=== PATIENT | female | born 1990 | race Caucasian/White ===

== ENCOUNTER 2017-10-13 10:24 | Emergency (ER) | payer MEDICAID, OTHER ==
--- NOTE | 2017-10-13 10:39 | ED Physician Documentation ---
Sore Throat/Dental Pain - HISTORIAN Historian: patient - HPI Stated Complaint: sore throat Chief Complaint: Sore Throat Onset: days ago (3) Context: denies: Abscess Associated Symptoms: sore throat, moderate, congestion. denies: fever, chills, unable to swallow, R ear pain, L ear pain Worsened By: nothing Further Comments: yes (She states she started with a sore throat Sat and she has had progression in pain> No fever, mild headache, no ear pain . She has not tried any OTC meds Denies sick contacts) - ROS CONST: no problems CVS/RESP: denies: shortness of breath GI/: denies: nausea, vomiting MS/SKIN/LYMPH: denies: rash NEURO/PSYCH: headache - PAST HX Past History: none Other History: none Immunizations: referred to PCP Allergies/Adverse Reactions: Allergies Allergy/AdvReac Type Severity Reaction Status Date / Time No Known Allergies Allergy Verified 10/13/17 10:40 Home Medications: Ambulatory Orders Medication Instructions Recorded Medroxyprogesterone Acetate 104 mg SQ 1T 10/13/17 [Depo-Subq Provera 104] - SOCIAL HX Smoking History: non-smoker Alcohol Use: none Drug Use: none - FAMILY HX Family History: No - VITAL SIGNS Vital Signs: Vital Signs Temp Pulse Resp BP Pulse Ox 98.0 F 78 16 115/69 99 10/13/17 10:37 10/13/17 10:37 10/13/17 10:37 10/13/17 10:37 10/13/17 10:37 - REVIEWED ASSESSMENTS Nursing Assessment Reviewed: Yes Vitals Reviewed: Yes Sore throat Physical Exam - EXAM General Appearance: no acute distress Mouth/Throat: pharyngeal erythema Ear/Nose: TM erythema (right ) Respiratory: no resp. distress, breath sounds nml, respiratory distress CVS: reg. rate & rhythm, heart sounds nml Abdomen: soft Extremities: non-tender Skin: warm/dry, normal color Neuro/Psych: oriented x3, mood/affect nml Discharge Clincal Impression: Otitis Qualifiers: Laterality: right Qualified Code(s): H66.91 - Otitis media, unspecified, right ear Referrals: Fatoumata Waldron MD [Primary Care Provider] - 2 Days Comments: Amoxicillin 500 mg TID X 10 days Ciprodex 3 drops in right ear three times per day Increase fluids Return for any increase in symptoms Condition: Stable Disposition: 01 HOME, SELF-CARE Decision to Admit: NO Date of Decison to Admit: 10/13/17 Decision Time: 10:45
[2017-10-13 10:40] VITALS: BP 115/69
== END 2017-10-13 10:54 | disposition home or self-care (01) ==
LOC: ED 10:24
DX: H66.91 Otitis media, unspecified, right ear (principal); J02.9 Acute pharyngitis, unspecified
CPT/HCPCS: 87070; 87880; 99283